=== PATIENT | female | born 1980 | race Caucasian/White ===

== ENCOUNTER 2019-03-21 09:19 | Emergency (ER) | payer OTHER ==
[~2019-03-21] VITALS: Ht 157.5 cm; Wt 74.0 kg
[2019-03-21] MEDS ORDERED: WELLTAB40 PO (09:31)
[2019-03-21] MEDS ORDERED: BUSP15TA47 PO (09:31)
--- NOTE | 2019-03-21 10:39 | REP ---
CHEST, TWO VIEWS: There is no evidence of acute infiltrate. No pleural effusion is seen. The heart is normal in size. The mediastinal silhouette is unremarkable. The visualized osseous structures are intact. IMPRESSION: No acute pulmonary disease. Electronically Signed by Robin Kang MD 03/25/2019 09:41 A
[2019-03-21] MEDS ORDERED: ALBUTEROL SULFATE 2.5 MG/0.5 ML INH NEB SOLN NEB ONE (11:15)
[2019-03-21] MEDS ORDERED: PRED20TA PO (11:43)
[2019-03-21] MEDS ORDERED: MUCI1TAB18 PO (11:44)
[2019-03-21] MEDS ORDERED: PROAAER10 INH (11:44)
[2019-03-21 11:55] VITALS: BP 113/58
--- NOTE | 2019-03-22 08:43 | ECGEPIP ---
[facility] - ED Test Date: 2019-03-21 Pat Name: WILLIAM COLE Department: Room: - Gender: Female Security Rep: : [id number] Requested By: Winnie Orozco Order Number: [id number] Reading MD: Mirza Mac Measurements Intervals [place] Rate: 93 P: 79 NM: 153 QRS: 66 QRSD: 83 T: 45 QT: 352 QTc: 439 Interpretive Statements SINUS RHYTHM WITH SINUS ARRHYTHMIA POSSIBLE LEFT ATRIAL ENLARGEMENT NONSPECIFIC ST & T-WAVE ABNORMALITY Comparison tracing not on file Electronically Signed on 03-22-2019 8:43:02 EDT by Mirza Mac
== END 2019-03-21 11:50 | disposition home or self-care (01) ==
LOC: M ED 09:19
DX: J20.9 Acute bronchitis, unspecified (principal); Z79.899 Other long term (current) drug therapy